=== PATIENT | female | born 1975 | race Caucasian/White ===

== ENCOUNTER 2018-06-24 11:42 | Inpatient (IN) | payer OTHER ==
[2018-06-24 11:47] VITALS: BMI 29.0
--- NOTE | 2018-06-24 12:44 | ED PDOC ---
HPI: General Adult Time Seen by Provider: 06/24/18 12:41 Chief Complaint (Nursing): Back Pain Chief Complaint (Provider): BACK PAIN History Per: Patient (43 Y/O FEMALE H/O ONGOING BACK PAIN ASSOCIATED WITH HERNIATED DISC S/P BACK INJURY AT WORK 12/2017 HERE WITH WORSENING BACK PAIN DESPITE USE OF PAIN MEDICATIONS. DENIES ANY URINARY OR RECTAL INCONTINENCE.) Past Medical History Reviewed: Historical Data, Nursing Documentation, Vital Signs Vital Signs: Last Vital Signs Temp 98.8 F 06/24/18 11:48 Pulse 76 06/24/18 11:48 Resp 16 06/24/18 11:48 BP 109/73 06/24/18 11:48 Pulse Ox 100 06/24/18 11:48 - Family History Family History: States: No Known Family Hx - Home Medications Home Medications: Ambulatory Orders Medication Instructions Recorded No Known Home Med 06/24/18 - Allergies Allergies/Adverse Reactions: Allergies Allergy/AdvReac Type Severity Reaction Status Date / Time No Known Allergies Allergy Verified 06/24/18 12:01 Review of Systems ROS Statement: Except As Marked, All Systems Reviewed And Found Negative Physical Exam - Reviewed Nursing Documentation Reviewed: Yes Vital Signs Reviewed: Yes - Physical Exam Appears: Positive for: Well, Non-toxic, No Acute Distress Head Exam: Positive for: ATRAUMATIC, NORMAL INSPECTION, NORMOCEPHALIC Skin: Positive for: Normal Color, Warm, DRY Eye Exam: Positive for: EOMI, Normal appearance, PERRL ENT: Positive for: Normal ENT Inspection Neck: Positive for: Normal, Painless ROM Cardiovascular/Chest: Positive for: Regular Rate, Rhythm Respiratory: Positive for: CNT, Normal Breath Sounds Gastrointestinal/Abdominal: Positive for: Normal Exam, Soft Back: Positive for: Vertebral Tenderness (PARALUMBAR TENDERNESS ) Extremity: Positive for: Normal ROM Neurological/Psych: Positive for: Awake, Alert, Normal Tone - Laboratory Results Result Diagrams: 06/24/18 12:35 06/24/18 12:35 - ECG ECG Rhythm: Positive for: Sinus Rhythm (nsr 71 bpm no ectopy no acute changes) O2 Sat by Pulse Oximetry: 100 - Progress ED Course And Treament: cxr: nad Disposition - Clinical Impression Clinical Impression: Intractable back pain - Patient ED Disposition Is Patient to be Admitted: Yes - Disposition Disposition Time: 12:53 Condition: FAIR - Pt Status Changed To: Hospital Disposition Of: Inpatient - Admit Certification Admit to Inpatient:: After my assessment, the patient will require hospitalization for at least two midnights. This is because of the severity of symptoms shown, intensity of services needed, and/or the medical risk in this patient being treated as an outpatient.
[2018-06-24 13:16] LABS: BASO % 0.1 % (0.0-2.0); EOS # 0.1 K/uL (0.0-0.7); EOS % 1.8 % (0.0-4.0); HEMOGLOBIN 12.6 g/dL (12.0-16.0); MEAN CELL VOLUME 90.5 fl (81.0-99.0); MEAN CORPUSCULAR HEMOGLOBIN 30.4 pg (27.0-31.0); MEAN CORPUSCULAR HGB CONC 33.6 g/dL (33.0-37.0); MEAN PLATELET VOLUME 9.9 fl (7.2-11.7); MONO # 0.9 K/uL (0.0-0.8); MONO % 12.3 % (0.0-10.0); NEUT % 56.8 % (50.0-75.0); NRBC % 0.1 % (0.0-0.0); RBC 4.14 Mil/uL (3.80-5.20); RED CELL DISTRIBUTION WIDTH 13.5 % (11.5-14.5)
[2018-06-24 13:21] LABS: PROTHROMBIN TIME 10.8 Seconds (9.8-13.1)
[2018-06-24 13:23] LABS: BLOOD UREA NITROGEN 15 mg/dl (7-17); CALCIUM 8.8 mg/dL (8.4-10.2); GFR NON-AFRICAN AMERICAN > 60
[2018-06-24 13:24] LABS: PARTIAL THROMBOPLASTIN TIME 34.1 Seconds (25.6-37.1)
--- NOTE | 2018-06-24 14:51 | RAD ---
Date of service: 06/24/2018 HISTORY: ROUTINE COMPARISON: No prior. FINDINGS: LUNGS: No active pulmonary disease. PLEURA: No significant pleural effusion identified, no pneumothorax apparent. CARDIOVASCULAR: No atherosclerotic calcification present Normal. OSSEOUS STRUCTURES: No significant abnormalities. VISUALIZED UPPER ABDOMEN: Normal. OTHER FINDINGS: None. IMPRESSION: No active disease.
--- NOTE | 2018-06-24 21:02 | CARD ---
APPROVED REPORT Date of service: 06/24/2018 EKG Measurement Heart [id number] <Conclusion> Normal sinus rhythm Normal ECG
[2018-06-24] MEDS: Lactated Ringer's 1,000 ML IV SCH (23:20)
--- NOTE | 2018-06-25 01:41 | CP.PCM.HP ---
History of Present Illness - History of Present Illness History of Present Illness: CC: Lower back pain. HPI: 43 y/o female with no PMH presented to the ED with acute on chronic back pain. 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 Despite physical therapy and lumbar injections, the pain went unrelieved. The pt sees Dr. Frankel outpatient, in the office setting. PMH: None. PSH: None. Allergies: NKDA. Subjective Review of Systems: Reviewed and no additional remarkable complaints except lower back pain. Objective Appears: Anxious, Non-toxic, No Acute Distress. Head Exam: NORMAL INSPECTION, normocephalic. Eye Exam: Normal eye inspection, EOMI, PERRLA. Respiratory Exam: NORMAL BREATHING PATTERN, breath sounds clear bilaterally. Cardiovascular Exam: +S1, +S2. RRR. GI & Abdominal Exam: Non-distended, soft, non-tender. Neurological Exam: Alert, Awake, Oriented x3. Psychiatric exam: Normal mood. Calm and cooperative. Musculoskeletal exam: Painful ROM, tenderness to the lower back. Skin exam: Normal color, warm, dry. Assessment/Impression/Plan: 1.) Intractable Back Pain (Lumbar Spine) -For Lumbar surgery tomorrow with Dr. Frankel, neurosurgery. -NPO past midnight. -Coags, CXR, and EKG reviewed; WNL. -Pain control: Toradol and Morphine. -LR @ 100 ml/hr. -Continue current treatment. Present on Admission - Present on Admission Any Indicators Present on Admission: No Past Patient History - Infectious Disease Hx of Infectious Diseases: None - Past Social History Smoking Status: Former Smoker - CARDIAC Hx Cardiac Disorders: No - MUSCULOSKELETAL/RHEUMATOLOGICAL Hx Musculoskeletal Disorders: Yes - PSYCHIATRIC Hx Substance Use: No Meds Allergies/Adverse Reactions: Allergies Allergy/AdvReac Type Severity Reaction Status Date / Time No Known Allergies Allergy Verified 06/24/18 12:01 Results - Vital Signs Recent Vital Signs: Last Vital Signs Temp 98.1 F 06/25/18 00:30 Pulse 74 06/25/18 00:30 Resp 18 06/25/18 00:30 BP 97/51 L 06/25/18 00:30 Pulse Ox 98 06/25/18 00:30 - Labs Result Diagrams: 06/24/18 12:35 06/24/18 12:35 Labs: Laboratory Results - last 24 hr 06/24/18 06/24/18 06/24/18 12:35 12:35 12:35 WBC 7.0 RBC 4.14 Hgb 12.6 Hct 37.5 MCV 90.5 MCH 30.4 MCHC 33.6 RDW 13.5 Plt Count 248 MPV 9.9 Neut % (Auto) 56.8 Lymph % (Auto) 29.0 [place] % (Auto) 12.3 H Eos % (Auto) 1.8 Baso % (Auto) 0.1 Neut # (Auto) 4.0 Lymph # (Auto) 2.0 [place] # (Auto) 0.9 H Eos # (Auto) 0.1 Baso # (Auto) 0.0 PT 10.8 INR 1.0 APTT 34.1 Sodium 138 Potassium 3.8 Chloride 105 Carbon Dioxide 24 Anion Gap 13 BUN 15 Creatinine 0.5 L Est GFR ( Amer) > 60 Est GFR (Non-Af Amer) > 60 Random Glucose 90 Calcium 8.8 Blood Type Blood Type Confirm Antibody Screen BBK History Checked 06/24/18 06/24/18 12:35 13:19 WBC RBC Hgb Hct MCV MCH MCHC RDW Plt Count MPV Neut % (Auto) Lymph % (Auto) [place] % (Auto) Eos % (Auto) Baso % (Auto) Neut # (Auto) Lymph # (Auto) [place] # (Auto) Eos # (Auto) Baso # (Auto) PT INR APTT Sodium Potassium Chloride Carbon Dioxide Anion Gap BUN Creatinine Est GFR ( Amer) Est GFR (Non-Af Amer) Random Glucose Calcium Blood Type O POSITIVE Blood Type Confirm O POSITIVE Antibody Screen Negative BBK History Checked No verified bt Assessment & Plan (1) Intractable back pain Status: Acute
[2018-06-25] MEDS ORDERED: Midazolam 2 MG/2 ML VIAL ONE (07:11)
[2018-06-25] MEDS ORDERED: Rocuronium 10 mg/ml (5 ml) ONE (07:11)
[2018-06-25] MEDS ORDERED: Propofol 10 mg/ml Inj (20 ML) ONE (07:11)
[2018-06-25] MEDS ORDERED: Lidocaine 1% 5ml Abboject ONE (07:12)
[2018-06-25] MEDS ORDERED: Lidocaine 4% (Laryng-O-Jet) Kit MM ONE (07:12)
[2018-06-25] MEDS ORDERED: Thrombin Topical 5,000 Int Units Spray Kit ONE (07:12)
[2018-06-25] MEDS ORDERED: Dexamethasone 4 mg/1 ml ONE ×2 (07:12→08:19)
[2018-06-25] MEDS ORDERED: Neostigmine 1:1000 (1 mg/ml) Inj ONE (07:12)
[2018-06-25] MEDS ORDERED: Absorbable Gelatin Sponge Size 12-7 ONE (07:12)
[2018-06-25] MEDS ORDERED: Succinylcholine Chloride 20 mg/ml Syr (5 ml) IV ONE (07:12)
[2018-06-25] MEDS ORDERED: Bupivacaine HCl 0.5% PF (30 ml) Inj ONE (07:12)
[2018-06-25] MEDS ORDERED: Lidocaine 1% w Epi 1:100,000 Inj ONE (07:13)
--- NOTE | 2018-06-25 07:30 | CP.PCM.CON ---
History of Present Illness - History of Present Illness History of Present Illness: Neurosurgical consult: Dr. Frankel Patient is a 43 y/o female who presented to [facility] with c/o severe lower back pain. The pain has been chronic following an injury which occurred at work on 12/21/17 while falling due to a puddle in [place] [employer] [place]. She has tried and failed conservative management since that time, with PT, oral meds and multiple epidural injections. She has had pain on a daily basis hindering her usual activities. The pain radiates from her lower back to her RLE with occasional numbness and tingling. She denies any bowel/bladder dysfunction or saddle paresthesias. She denies CP/SOB/N/V/D/fever/dysuria/melena. PMH: denies PSH: denies meds: denies allergy: NKDA SH: tobacco 1/2 ppd >20 years, denies ETOH/drug use Review of Systems - Review of Systems All systems: reviewed and no additional remarkable complaints except Review of Systems: as per HPI Past Patient History - Infectious Disease Hx of Infectious Diseases: None - Past Medical History & Family History Past Family History: Reviewed and not pertinent - Past Social History Smoking Status: Former Smoker - CARDIAC Hx Cardiac Disorders: No - PULMONARY Hx Respiratory Disorders: No - NEUROLOGICAL Hx Neurological Disorder: No - HEENT Hx HEENT Problems: No - RENAL Hx Chronic Kidney Disease: No - ENDOCRINE/METABOLIC Hx Endocrine Disorders: No - HEMATOLOGICAL/ONCOLOGICAL Hx Blood Disorders: No - INTEGUMENTARY Hx Dermatological Problems: No - MUSCULOSKELETAL/RHEUMATOLOGICAL Hx Musculoskeletal Disorders: Yes - GASTROINTESTINAL Hx Gastrointestinal Disorders: No - GENITOURINARY/GYNECOLOGICAL Hx Genitourinary Disorders: No - PSYCHIATRIC Hx Substance Use: No - SURGICAL HISTORY Hx Surgeries: No - ANESTHESIA Hx Anesthesia: No Hx Anesthesia Reactions: No Hx Malignant Hyperthermia: No Meds Allergies/Adverse Reactions: Allergies Allergy/AdvReac Type Severity Reaction Status Date / Time No Known Allergies Allergy Verified 06/24/18 12:01 - Medications Medications: Current Medications Lactated Ringer's (Lactated Ringer's) 1,000 mls @ 100 mls/hr IV .Q10H KISHAN Last Admin: 06/24/18 23:20 Dose: 100 mls/hr Ketorolac Tromethamine (Toradol) 30 mg IVP Q6 PRN PRN Reason: Pain, moderate (4-7) Morphine Sulfate (Morphine) 2 mg IVP Q4 PRN PRN Reason: Pain, severe (8-10) Physical Exam - Constitutional Appears: Well, No Acute Distress - Head Exam Head Exam: ATRAUMATIC, NORMOCEPHALIC - Eye Exam Eye Exam: EOMI, Normal appearance - ENT Exam ENT Exam: Mucous Membranes Moist - Respiratory Exam Respiratory Exam: NORMAL BREATHING PATTERN - Extremities Exam Extremities exam: Positive for: normal inspection - Back Exam Additional comments: Lumbar: midline and bilateral paraspinal tenderness no lesions/erythema/deformity sensation intact SP/DP/TN motor intact EHL/FHL/TA/G neg clonus neg SLR b/l - Neurological Exam Neurological exam: Alert, Oriented x3 Results - Vital Signs Recent Vital Signs: Last Vital Signs Temp 98.1 F 06/25/18 00:30 Pulse 82 06/25/18 01:28 Resp 18 06/25/18 01:28 BP 97/51 L 06/25/18 00:30 Pulse Ox 99 06/25/18 01:28 - Labs Result Diagrams: 06/24/18 12:35 06/24/18 12:35 Labs: Laboratory Results - last 24 hr 06/24/18 06/24/18 06/24/18 12:35 12:35 12:35 WBC 7.0 RBC 4.14 Hgb 12.6 Hct 37.5 MCV 90.5 MCH 30.4 MCHC 33.6 RDW 13.5 Plt Count 248 MPV 9.9 Neut % (Auto) 56.8 Lymph % (Auto) 29.0 [place] % (Auto) 12.3 H Eos % (Auto) 1.8 Baso % (Auto) 0.1 Neut # (Auto) 4.0 Lymph # (Auto) 2.0 [place] # (Auto) 0.9 H Eos # (Auto) 0.1 Baso # (Auto) 0.0 PT 10.8 INR 1.0 APTT 34.1 Sodium 138 Potassium 3.8 Chloride 105 Carbon Dioxide 24 Anion Gap 13 BUN 15 Creatinine 0.5 L Est GFR ( Amer) > 60 Est GFR (Non-Af Amer) > 60 Random Glucose 90 Calcium 8.8 Blood Type Blood Type Confirm Antibody Screen BBK History Checked 06/24/18 06/24/18 12:35 13:19 WBC RBC Hgb Hct MCV MCH MCHC RDW Plt Count MPV Neut % (Auto) Lymph % (Auto) [place] % (Auto) Eos % (Auto) Baso % (Auto) Neut # (Auto) Lymph # (Auto) [place] # (Auto) Eos # (Auto) Baso # (Auto) PT INR APTT Sodium Potassium Chloride Carbon Dioxide Anion Gap BUN Creatinine Est GFR ( Amer) Est GFR (Non-Af Amer) Random Glucose Calcium Blood Type O POSITIVE Blood Type Confirm O POSITIVE Antibody Screen Negative BBK History Checked No verified bt - Impressions Impression: MRI of lumbar spine from outside facility reveals disc herniation as reviewed by Dr. Frankel Assessment & Plan (1) Lumbar disc herniation Assessment and Plan: -Patient complaining of lower back pain radiating to the RLE. Dr. Frankel interviewed and examined patient, MRI was reviewed. Our plan is to perform R L5- S1 bren-laminectomy, microdiscectomy and annuloplasty, possible other levels. -Risks/benefits/alternatives were explained to the patient. Patient expresses understanding and agrees to proceed with above procedure. -d/w Dr. Frankel who agrees with above Status: Acute - Date & Time Date: 06/25/18 Time: 07:00
[2018-06-25] MEDS ORDERED: Lactated Ringer's 1,000 ML IV ONE ×2 (07:55→11:10)
[2018-06-25] MEDS ORDERED: Absorbable Gelatin Sponge Size 12-7 TP ONE (08:45)
[2018-06-25] MEDS ORDERED: Bupivacaine 0.5% Inj(30mL) IJ ONE (08:52)
[2018-06-25] MEDS: HYDROmorphone 0.5 mg/0.5 ml ISec IVP PRN ×2 (09:25→09:40)
--- NOTE | 2018-06-25 10:45 | PCM.SURG1 ---
Surgeon's Initial Post Op Note - Surgeon's Notes Surgeon: Jae Frankel MD Mine Wirer: Krish Mccormick PA-C Type of Anesthesia: General Endo Anesthesia Administered By: Imelda Corona MD Pre-Operative Diagnosis: Lumbar disc herniation Operative Findings: see complete operative report Post-Operative Diagnosis: L5-S1 lumbar disc herniation Operation Performed: L5-S1 lumbar laminectomy, microdiscectomy Specimen/Specimens Removed: none Estimated Blood Loss: EBL {In ML}: 20 Blood Products Given: N/A Drains Used: No Drains Post-Op Condition: Good Date of Surgery/Procedure: 06/25/18 Time of Surgery/Procedure: 08:15
[2018-06-25] MEDS: Oxycodone/Acetaminophen 5/325 mg Tab PO PRN ×2 (16:50→21:35)
--- NOTE | 2018-06-26 00:02 | OP ---
PROCEDURE DATE: 06/25/2018 PREOPERATIVE DIAGNOSIS: Herniated lumbar disc at L5-S1. POSTOPERATIVE DIAGNOSIS: Herniated lumbar disc at L5-S1. PROCEDURE: Lumbar laminectomy at L5-S1 and foraminotomy and radiofrequency annuloplasty. Fluoroscopy has been used. Microscopy has been used. SURGEON: Jae Frankel MD EMPLOYMENT DIRECTOR: Krish Mccormick, physician assistant printer floor covering, who helped me perform the surgery. DESCRIPTION OF PROCEDURE: The patient was brought to the operating room, anesthetized with general endotracheal anesthesia, placed in a prone position on the Tobias table. Care was taken to protect all pressure points. Back of the lumbar area was thoroughly prepped and draped in a standard sterile manner after marking skin incision for lumbar laminectomy at L5-S1. After prepping and draping the area, skin has been incised. Bleeding skin has been controlled with bipolar emergency response coordinator. After using a Bovie emergency response coordinator, paraspinal muscles have been detached from the attachments of spinous process and lamina at L5-S1 on the right side. Joceline retractor has been applied to alter the facet joint of L5-S1. Fluoroscopy has been used in order to confirm this level. Under magnification by using high-speed drill, the lamina of L5-S1, medial part of L5-S1 have been drilled. Drilling is continued until the top and bottom of the ligamentum flavum seen. Drilling was also continued on the medial part of the facets until the turn of ligamentum was seen. Once this had been done, thinned out the lamina, medial part of the facets and ligamentum flavum had been removed. Nerve root and neural tube were retracted medially. There was herniated disc noted, and there was no extrusion noted, and it was found to be Foraminotomy has been performed. At this point, radiofrequency needle has been inserted into the disc space except fluoroscopy has been confirmed at this level, and by using radiofrequency needle, . Radiofrequency annuloplasty has been done, and after that, hemostasis was best achieved. Fascia was closed, interspinous ligaments and spinous process with 1 Vicryl, subcutaneous with 3-0 Vicryl. Skin has been closed with intradermal stitches. The patient tolerated the procedure. After the procedure, mobilized to the recovery room in stabilized condition. Jae Frankel MD [facility] # [id number]
[2018-06-26] MEDS: Lactated Ringer's 1,000 ML IV SCH ×2 (02:29→06:35)
[2018-06-26] MEDS: Bacitracin OINT 15GM TOP SCH ×3 (02:51→09:12)
[2018-06-26] MEDS: Oxycodone/Acetaminophen 5/325 mg Tab PO PRN ×2 (03:35→09:42)
[2018-06-26 06:04] LABS: BASO % 0.1 % (0.0-2.0); EOS % 0.1 % (0.0-4.0); HEMOGLOBIN 11.7 g/dL (12.0-16.0); MEAN CELL VOLUME 89.8 fl (81.0-99.0); MEAN CORPUSCULAR HEMOGLOBIN 30.5 pg (27.0-31.0); MEAN CORPUSCULAR HGB CONC 33.9 g/dL (33.0-37.0); MEAN PLATELET VOLUME 9.4 fl (7.2-11.7); MONO # 1.4 K/uL (0.0-0.8); MONO % 9.9 % (0.0-10.0); NEUT # 11.1 K/uL (1.8-7.0); NEUT % 75.9 % (50.0-75.0); RBC 3.83 Mil/uL (3.80-5.20); RED CELL DISTRIBUTION WIDTH 12.9 % (11.5-14.5); WHITE BLOOD COUNT 14.6 K/uL (4.8-10.8)
[2018-06-26 06:24] LABS: ALB/GLOB RATIO 1.3 (1.0-2.1); ALT/SGPT 28 U/L (9-52); AST/SGOT 23 U/L (14-36); BLOOD UREA NITROGEN 10 mg/dl (7-17); CALCIUM 8.9 mg/dL (8.4-10.2); GFR NON-AFRICAN AMERICAN > 60
[2018-06-26 07:39] VITALS: BP 96/63; PULSE 63; RESP 20; TEMP 97.9; O2SAT 100
--- NOTE | 2018-06-26 09:11 | CP.PCM.PN ---
Subjective - Date & Time of Evaluation Date of Evaluation: 06/26/18 Time of Evaluation: 08:00 - Subjective Subjective: Patient seen and examined OOB comfortable. Pain is well controlled this AM. No acute events overnight. Difficulty sleeping due to being uncomfortable with bed. Eager to d/c home. No other complaints. Objective - Vital Signs/Intake and Output Vital Signs (last 24 hours): Temp Pulse Resp BP Pulse Ox 97.9 F 63 20 96/63 L 100 06/26/18 07:38 06/26/18 07:38 06/26/18 07:38 06/26/18 07:38 06/26/18 07:38 Intake and Output: 06/26/18 06/26/18 06:59 18:59 Intake Total 1120 Balance 1120 - Medications Medications: Current Medications Bacitracin (Bacitracin Oint) 1 applic TOP BID [facility] Last Admin: 06/26/18 02:55 Dose: Not Given Cyclobenzaprine HCl (Flexeril) 10 mg PO Q8 PRN PRN Reason: Muscle spasm Lactated Ringer's (Lactated Ringer's) 1,000 mls @ 100 mls/hr IV .Q10H [facility] Last Admin: 06/26/18 06:35 Dose: Not Given Morphine Sulfate (Morphine) 2 mg IVP Q4 PRN PRN Reason: Pain, severe (8-10) Last Admin: 06/26/18 05:49 Dose: 2 mg Ondansetron HCl (Zofran Inj) 4 mg IVP ONCE PRN PRN Reason: Nausea/Vomiting Oxycodone/Acetaminophen (Percocet 5/325 Mg Tab) 2 tab PO Q4 PRN PRN Reason: Pain, moderate (4-7) Stop: 06/28/18 10:30 Last Admin: 06/26/18 03:35 Dose: 2 tab - Labs Labs: 06/26/18 05:55 06/26/18 05:55 PT 10.8 Seconds (9.8-13.1) 06/24/18 12:35 INR 1.0 06/24/18 12:35 APTT 34.1 Seconds (25.6-37.1) 06/24/18 12:35 - Back Exam Additional comments: Lumbar: mild periwound tenderness Dressings CDI abd binder in place sensation intact SP/DP/TN motor intact EHL/FHL/TA/G neg clonus neg SLR b/l Assessment and Plan (1) Lumbar disc herniation Assessment & Plan: POD#1 s/p L5-S1 laminectomy, microdiscectomy and annuloplasty -pain controlled -PT/OT -neurosurgically stable for d/c home -may shower in 5 days -keep dressings clean and dry -activity as tolerated, no heavy lifting for 2 weeks -f/u in office within 7-10 days -d/w Dr. Frankel who agrees with above Status: Acute
--- NOTE | 2018-06-27 09:29 | RAD ---
Date of service: 06/25/2018 PROCEDURE: Intraoperative Fluoroscopy. HISTORY: LUMBAR LAMINECTOMY FINDINGS: Fluoroscopic assistance was provided. Fluoroscopy time = 8.0 sec. Radiation dose = 4.89 mGy. Please refer to operative report for additional details.
== END 2018-06-26 14:00 | disposition home or self-care (01) | DRG 517 ==
LOC: H.ER 11:42 → H.ERHOLD 12:53 → H.MEDSURG1 21:24 → SUPCPDRO 06-25 07:45
PROVIDERS: ADMIT Family Medicine; ATTEND Family Medicine
PROC: 01NB0ZZ Release Lumbar Nerve, Open Approach (ICD-10-PCS; principal; 2018-06-25 07:45)
DX: M51.27 Other intervertebral disc displacement, lumbosacral region (principal); G89.29 Other chronic pain; F17.210 Nicotine dependence, cigarettes, uncomplicated